=== PATIENT | female | born 1970 | race Caucasian/White ===

== ENCOUNTER 2018-12-07 11:41 | Inpatient (IN) | payer OTHER ==
[~2018-12-07] VITALS: Ht 175.3 cm; Wt 81.6 kg
[2018-12-07] MEDS ORDERED: SODIUM CHLORIDE 0.9% 1,000 ML IV ONE ×2 (12:12)
[2018-12-07 12:17] LABS: Basophils # (auto) 0.1 uL; Basophils % (auto) 0.6 % (0.0-2.0); Eosinophils # (auto) 0.1 uL; Eosinophils % (auto) 0.8 % (0.0-7.0); Hematocrit 39.2 % (36.0-46.0); Hemoglobin 12.8 g/dL (12.2-16.2); Lymphocytes # (auto) 1.3 uL; Lymphocytes % (auto) 15.1 % (10.0-50.0); Mean Corpuscular Hemoglobin 25.9 pg (28.0-32.0); Mean Corpuscular Hgb Conc. 32.5 g/dL (32.0-36.0); Mean Corpuscular Volume 79.8 fL (80.0-100.0); Monocytes # (auto) 0.6 uL; Monocytes % (auto) 7.4 % (0.0-12.0); Neutrophils # (auto) 6.5 uL; Neutrophils % (auto) 76.1 % (37.0-80.0); Platelet Count (auto) 235 10^3/uL (140-450); Red Blood Cells 4.92 10^6/uL (4.0-5.20); Red Cell Distribution Width 17.5 % (11.8-14.3); White Blood Cell 8.5 10^3/uL (4.4-10.8)
[2018-12-07 12:38] LABS: Albumin 3.4 g/dL (3.4-5.0); BUN/Creatinine Ratio 16.3; Calcium 8.6 mg/dL (8.5-10.1); Potassium 4.3 mmol/L (3.5-5.1)
[2018-12-07 12:41] LABS: Bilirubin, Total 0.4 mg/dL (0.2-1.0)
[2018-12-07] MEDS ORDERED: medroxyPROGESTERone ACETATE 5 MG TAB PO ONE (14:30)
[2018-12-07 14:34] LABS: Urine Bacteria MANY /hpf (None Seen); Urine Blood 3+ /uL (Negative); Urine Specific Gravity 1.021 (1.001-1.035); Urine WBC 55 /hpf (0 - 5)
[2018-12-07 15:23] LABS: Hematocrit 33.7 % (36.0-46.0)
[2018-12-07 17:33] LABS: Basophils # (auto) 0.1 uL; Eosinophils # (auto) 0 uL; Eosinophils % (auto) 0.3 % (0.0-7.0); Hemoglobin 10.5 g/dL (12.2-16.2); Monocytes # (auto) 0.8 uL; Neutrophils # (auto) 6.8 uL; Platelet Count (auto) 226 10^3/uL (140-450)
[2018-12-07 17:35] LABS: Basophils % (auto) 0.8 % (0.0-2.0); Hematocrit 32.6 % (36.0-46.0); Lymphocytes % (auto) 20.9 % (10.0-50.0); Mean Corpuscular Hemoglobin 25.8 pg (28.0-32.0); Mean Corpuscular Hgb Conc. 32.2 g/dL (32.0-36.0); Mean Corpuscular Volume 80.1 fL (80.0-100.0); Monocytes % (auto) 7.9 % (0.0-12.0); Neutrophils % (auto) 70.1 % (37.0-80.0); Red Blood Cells 4.07 10^6/uL (4.0-5.20); Red Cell Distribution Width 17.7 % (11.8-14.3); White Blood Cell 9.6 10^3/uL (4.4-10.8)
[2018-12-07] MEDS ORDERED: cefTRIAXone 1GM/50ML D5W 50 ML IV ONE (18:15)
[2018-12-07] MEDS ORDERED: NOREPINEPHRINE 8 MG/250ML KIT 250 ML IV ONE (19:12)
[2018-12-07 19:55] LABS: Hemoglobin 9.3 g/dL (12.2-16.2)
[2018-12-07 19:56] LABS: Hematocrit 28.6 % (36.0-46.0)
[2018-12-07] MEDS ORDERED: SUCCINYLCHOLINE CHLORIDE 20 MG/ML 10ML VIAL IV ONE (21:11)
[2018-12-07] MEDS ORDERED: MEPERIDINE HCL (25 MG/ML) 1ML VIAL ONE (21:12)
[2018-12-07] MEDS ORDERED: MIDAZOLAM HCL 1MG/1ML-2 ML VIAL ONE (21:13)
[2018-12-07] MEDS ORDERED: NITROGLYCERIN 0.4 MG SL TAB SL PRN (22:00)
[2018-12-07] MEDS ORDERED: MORPHINE SULF INJ 2 MG/ML SYRINGE 1ML IV PRN (22:00)
[2018-12-07 22:05] LABS: Partial Thromboplastin Time 19.4 sec (23.64-32.05)
[2018-12-07 22:07] LABS: INR 1.04 (0.9-1.15)
[2018-12-07] MEDS ORDERED: ONDANSETRON HCL 4 MG/2 ML VIAL IV ONE (22:15)
[2018-12-07] MEDS ORDERED: ONDANSETRON HCL 4 MG/2 ML VIAL ONE (22:21)
[2018-12-07] MEDS: ONDANSETRON HCL 4 MG/2 ML VIAL IV PRN (22:25)
--- NOTE | 2018-12-07 22:55 | NUR ---
[facility] admit from OR [facility] admitted to [facility] after SBAR received from [facility] Levine. Patient oriented to Janene Lai RN primary RN, unit, room, bed, and unit policies regarding patient care and visiting hours. S/P D&C, alert and oriented x 4. On 2L oxygen via nasal cannula, ambulatory. No acute S/S of distress, SOB or pain. Minimal bleeding from surgery as expected, no clots noted. Bed in lowest locked position, side rails up x 2, call light within reach. Patient weighed by bed scale and encouraged to call if they need something. All questions and concerns addressed, patient verbalized understanding. Will continue to monitor and continue care. Note:
[2018-12-07 23:00] VITALS: BP 114/74
[2018-12-08] MEDS ORDERED: METO-159 PO (01:21)
[2018-12-08] MEDS: ONDANSETRON HCL 4 MG/2 ML VIAL IV PRN ×2 (03:20→08:21)
[2018-12-08 04:38] VITALS: BP 138/74
[2018-12-08 05:36] LABS: Basophils # (auto) 0 uL; Basophils % (auto) 0.1 % (0.0-2.0); Eosinophils # (auto) 0 uL; Hematocrit 29.1 % (36.0-46.0); Hemoglobin 9.6 g/dL (12.2-16.2); Lymphocytes # (auto) 1.2 uL; Lymphocytes % (auto) 9.9 % (10.0-50.0); Mean Corpuscular Hemoglobin 27.1 pg (28.0-32.0); Mean Corpuscular Hgb Conc. 33.1 g/dL (32.0-36.0); Mean Corpuscular Volume 81.7 fL (80.0-100.0); Monocytes # (auto) 0.3 uL; Monocytes % (auto) 2.1 % (0.0-12.0); Neutrophils # (auto) 10.7 uL; Neutrophils % (auto) 87.9 % (37.0-80.0); Platelet Count (auto) 195 10^3/uL (140-450); Red Blood Cells 3.57 10^6/uL (4.0-5.20); Red Cell Distribution Width 17.4 % (11.8-14.3); White Blood Cell 12.2 10^3/uL (4.4-10.8)
[2018-12-08 09:00] VITALS: BP 119/77
--- NOTE | 2018-12-08 09:59 | NUR ---
I faxed clinical information to [facility] including ER notes, H&P, operative report, vitals, labs and medication list.
--- NOTE | 2018-12-08 10:12 | NUR ---
Discharge instructions given as ordered. Encourage to follow up with PMD as instructed. All questions and concerns addressed. Patient verbalized understanding. Medication reconciliation form completed and copy given to patient. HIV removed with catheter intact, pressure dressing applied. Patient taken to vehicle via wheelchair with all personal belongings, accompanied by staff and family member. No distress noted at time of departure.
== END 2018-12-08 10:10 | disposition home or self-care (01) | DRG 744 ==
LOC: ER 11:41 → EDBD 11:41 → OVERFLOW 11:42 → CENTRAL 22:50
PROVIDERS: ADMIT Specialist; ATTEND Specialist
PROC: 30233N1 Transfusion of Nonautologous Red Blood Cells into Peripheral Vein, Percutaneous Approach (ICD-10-PCS; 2018-12-07)
PROC: 0UDB7ZZ Extraction of Endometrium, Via Natural or Artificial Opening (ICD-10-PCS; principal; 2018-12-07 21:27)
DX: D25.9 Leiomyoma of uterus, unspecified (principal); N39.0 Urinary tract infection, site not specified; I10 Essential (primary) hypertension; N81.6 Rectocele; N92.0 Excessive and frequent menstruation with regular cycle
CPT/HCPCS: 36415; 36430; 76856; 80053; 81001; 84702; 85014; 85018; 85025; 85610; 85730; 86850; 86900; 86901; 86920; G0378; J0330; J2250; J2405